=== PATIENT | male | born 1985 | race Caucasian/White ===

== ENCOUNTER 2022-03-12 10:00 | Outpatient (CLI) | payer BC, SELFPAY ==
--- NOTE | 2022-03-12 10:00 | CRLHL7_ITS ---
For Patients: As a result of the Century Cures Act, medical imaging exams and procedure reports are released immediately into your electronic medical record. You may view this report before your referring provider. If you have questions, please contact your health care provider. Indication: SINUSITIS, HEADACHE Technique: Performed without IV contrast Comparison: None available Findings: Frontal sinuses: Clear. Ethmoid sinuses: Clear. Maxillary sinuses: Clear. The maxillary sinus drainage pathways are patent on both sides. Sphenoid sinuses: Clear, including both sphenoethmoidal recesses. Nasal Cavity: Mild rightward curvature of the nasal septum. Lolly bullosa within the middle turbinates. No TMJ abnormalities identified. The visualized portions of the orbits, intracranial contents and upper soft tissue neck are grossly negative. Impression: 1. Clear sinuses. 2. Mild rightward curvature nasal septum. Please note that all CT scans at this facility use dose modulation, iterative reconstruction, and/or weight-based dosing when appropriate to reduce radiation dose to as low as reasonably achievable. Dictated by Vignesh Holt MD @ 03/12/2022 11:04:03 AM (Electronically Signed)
--- OUTSIDE RECORDS SUMMARY | 2022-03-12 10:03 | XMS_ITS | Clinical Summary ---
:1985 Author Organization [facility] [employer] [facility] [place] [address] Care Team Providers Name Role Phone Pcp, No Primary Care Provider Unavailable Allergies Active Allergy Reactions Severity Noted Date Comments Penicillins Rash 05/05/2018 Medications Medication Sig Dispensed Refills Start Date End Date Status meclizine (ANTIVERT) 25 mg tablet 0 2019 Active Active Problems No known active problems Immunizations Name Administration Dates Next Due Anthrax Vaccine 10/15/2007, 05/01/2007, 11/04/2006, 10/21/2006 HepA-HepB (Twinrix) 11/22/2004, 06/26/2004, 05/31/2004, 05/30/2004 Inactivated Polio Vaccine 06/26/2004 Influenza, IIV4 (=>6mos) MDV 04/07/2015 Lao Encephalitis 02/20/2005, 01/02/2005, 11/22/2004 Meningococcal Vaccine (Menomune) 05/31/2004, 05/30/2004 Oral Polio Vaccine 06/26/2002 Pneumococcal Poly,23-Valent 05/30/2004 (Pneumovax) Smallpox (Vaccinia) Live [id number] 10/08/2007 Td (Age >=7 Years) 06/26/2004 Tdap 12/16/2019 Typhoid (injectable) 06/18/2007 Typhoid Parenteral,Killed 01/02/2005 Yellow Fever 06/26/2004 Family History Medical History Relation Name Comments Heart failure Father Stroke Father Diabetes Mother Heart attack Paternal Uncle Burke age 40 Relation Name Status Comments Father Alive Mother Alive Paternal Uncle Burke Alive Sister Alive Social History Tobacco Use Types Packs/Day Years Used Date Never Smoker Smokeless Tobacco: Never Used Tobacco Cessation: Counseling Given: Yes Alcohol Use Standard Drinks/Week Comments Not Currently 0 (1 standard drink = 0.6 oz pure alcoho l) Alcohol Habits Answer Date Recorded How often do you have a drink containing alcohol? 2-4 times a month 01/20/2020 How many drinks containing alcohol do you have on a 1 or 2 01/20/2020 typical day when you are drinking? How often do you have six or more drinks on one Not asked occasion? Comment: Not asked Sex Assigned at Date Recorded Not on file Obstetrics History Last Filed Vital Signs Vital Sign Reading Time Taken Comments Blood Pressure 131/86 01/20/2020 8:28 AM CDT Pulse 60 01/20/2020 8:28 AM CDT Temperature 36.2 ??C (97.1 ??F) 12/16/2019 8:18 AM CDT Respiratory Rate - - Oxygen Saturation 98% 01/20/2020 8:28 AM CDT Inhaled Oxygen Concentration - - Weight 124 kg (273 lb 6.4 oz) 01/20/2020 8:28 AM CDT Height 194 cm (6' 4.38) 01/20/2020 8:28 AM CDT Body Mass Index 32.95 01/20/2020 8:28 AM CDT Plan of Treatment Health Maintenance Due Date Last Done Comments COVID-19 vaccine series (#1) 03/22/1984 Hepatitis C screening for age 0409/20/2001 18-79 Depression screening for age 12+ 12/15/2020 12/16/2019, BMI (ht and wt on same day) for 01/19/2021 01/20/2020, 07/0 07/2019, age 18+ 06/30/2018, Additional history exists Influenza for age 9-49 02/14/2022 04/07/2015 Lipids for age 35-44 05/05/2023 05/05/2018 Tetanus booster 12/15/2029 12/16/2019, 06/26/2004 Tdap Completed 12/16/2019 Results Not on filefrom Last 3 Months Insurance Payer Benefit Plan / Subscriber ID Effective Dates Phone Addre ss Type Group BLUE CROSS BL[employer] OF [id number] 2019-Present [address] [address] [place] [address] Care Teams Barrel Finisher Relationship Specialty Start Date End Date Pcp, No PCP - General 04/28/18 .
--- OUTSIDE RECORDS SUMMARY | 2022-03-12 10:03 | XMS_ITS ---
:1985 Author Care Team Providers Name Role Phone Aure Laureano Primary Care Provider Unavailable Allergies None recorded. Medications None recorded. Problems None recorded. Procedures None recorded. Results Lab Results None recorded. Past Encounters 12/28/2020 Administrative Reason for Encounter; His tory and Physical Examination, Occupation Aure Laureano PA-C: [address], [place] [address], Ph. Social History None recorded. Vaccine List None recorded. Plan of Care Reminders Provider Appointments None recorded. ? ? Lab None recorded. ? ? Referral None recorded. ? ? Procedures None recorded. ? ? Surgeries None recorded. ? ? Imaging None recorded. ? ? Vitals None recorded.
== END 2022-03-12 10:01 | disposition home or self-care (01) ==
LOC: CT 10:01
PROVIDERS: PCP Family Medicine; Visit Provider Otolaryngology
DX: J32.9 Chronic sinusitis, unspecified (principal); J34.2 Deviated nasal septum; R51.9 Headache, unspecified
CPT/HCPCS: 70486